=== PATIENT | female | born 1960 | race Caucasian/White ===

== ENCOUNTER 2021-01-07 10:39 | Inpatient (IN) | payer MEDICAID ==
[~2021-01-07] VITALS: Ht 152.4 cm; Wt 98.1 kg
[2021-01-07 11:27] LABS: HEMATOCRIT. 48.8 % (36.0-48.0); HEMOGLOBIN. 15.6 g/dL (12.0-16.0); MEAN CORPUSCULAR HEMOGLOBIN 25.7 pg (28.0-32.0); MEAN PLATELET VOLUME 9.4 fl (7.4-10.4); PLATELET 190 x1000/uL (130-400); RED CELL DISTRIBUTION WIDTH 22.8 % (11.6-14.6)
[2021-01-07 11:33] LABS: CHLORIDE 107 mEq/L (98-107)
[2021-01-07 11:38] LABS: INR 1.1; PROTHROMBIN TIME 11.6 sec (9.6-11.0)
[2021-01-07 11:59] LABS: PLATELET ESTIMATE NORMAL
[2021-01-07 12:06] LABS: BG BASE EXCESS 0.3 mmol/L (-2.0-2.0); BG CARBOXYHEMOGLOBIN 2.1 % (0.5-1.5); BG DEOXYHEMOGLOBIN 1.2 % (0.0-5.0); BG FRACTION INSPIRED OXYGEN 60; BG HCO3 ACT 24.5 mmol/L (22.0-26.0); BG METHEMOGLOBIN 0.4 % (0.0-1.5); BG OXYGEN SATURATION 98.8 % (92.0-98.5); BG OXYHEMOGLOBIN 96.3 % (94.0-97.0); BG PCO2 38.6 mmHg (35.0-45.0); BG PH 7.421 (7.350-7.450); BG PO2 131.8 mmHg (75.0-100.0); BG SAMPLE SITE RIGHT RADIAL; BG TOTAL HEMOGLOBIN 15.3 g/dL (12.0-18.0); BG VENT MODE MASK - BIPAP
[2021-01-07] MEDS ORDERED: VANCOMYCIN 1 G PREMIX 200 ML IV ONE (12:30)
[2021-01-07] MEDS ORDERED: DEXAMETHASONE 10 MG/ML VIAL IV ONE (12:30)
[2021-01-07] MEDS ORDERED: PIPERACILLIN/TAZ 3.375G PREMIX 50 ML IV ONE (12:30)
[2021-01-07] MEDS ORDERED: ALBUTEROL 6.7GM HFA INHALER ORI PRN (14:45)
[2021-01-07] MEDS ORDERED: AZITHROMYCIN 500 MG in DEXT 5% WATER 250 ML IV SCH (15:00)
[2021-01-07] MEDS ORDERED: CLONIDINE 0.1MG TABLET PO PRN (15:00)
[2021-01-07] MEDS ORDERED: CEFTRIAXONE 1 G PREMIX 50 ML IV NR (15:00)
[2021-01-07] MEDS ORDERED: ENOXAPARIN 40MG/0.4ML SYR SUBCUT SCH (15:00)
[2021-01-07] MEDS ORDERED: GUAIFENESIN 200MG/10ML SUGAR FREE UDC PO PRN (15:00)
[2021-01-07] MEDS ORDERED: DOCUSATE SODIUM 100MG CAPSULE PO PRN (15:00)
[2021-01-07] MEDS ORDERED: MAGNESIUM/ALUMINUM HYDROXIDE/SIMETHICONE 30ML UDC PO PRN (15:00)
[2021-01-07] MEDS ORDERED: ONDANSETRON HCL 4MG/2ML INJ IV PRN (15:00)
[2021-01-07] MEDS ORDERED: NALOXONE HCL 0.4MG/ML VIAL IV PRN (15:00)
[2021-01-07] MEDS: ENOXAPARIN 30MG/0.3ML SYR SUBCUT SCH (18:00)
[2021-01-07 21:13] LABS: CLARITY URINE CLEAR (CLEAR); COLOR URINE YELLOW (YELLOW); KETONES URINE TRACE (NEGATIVE); LEUKOCYTE ESTERASE URINE TRACE (NEGATIVE); NITRITE URINE POSITIVE (NEGATIVE); OCCULT BLOOD URINE NEGATIVE (NEGATIVE); PH URINE 5.5 (4.5-8.0); PROTEIN URINE 1+ (NEGATIVE); SPECIFIC GRAVITY URINE 1.014 (1.005-1.030)
[2021-01-07] MEDS ORDERED: ALBUTEROL (0.083%) 2.5MG/3ML NEB HHN PRN (22:45)
[2021-01-08] VITALS (13 sets, daily range): BP systolic 115–166; BP diastolic 60–97
[2021-01-08] MEDS ORDERED: DEXTROSE 50% WATER 50ML SYRINGE IV PRN (03:30)
[2021-01-08 05:41] LABS: BASOPHILS % 0.3 % (0.0-2.0); EOSINOPHILS % 0.1 % (0.0-5.0); HEMATOCRIT. 44.2 % (36.0-48.0); HEMOGLOBIN. 14.1 g/dL (12.0-16.0); LYMPHOCYTES % 17.6 % (20.0-50.0); MEAN CORPUSCULAR HEMOGLOBIN 25.7 pg (28.0-32.0); MEAN CORPUSCULAR VOLUME 80.8 fL (81.0-99.0); MEAN PLATELET VOLUME 9.7 fl (7.4-10.4); MONOCYTES % 5.4 % (2.0-8.0); NEUTROPHILS % 76.6 % (40.0-76.0); PLATELET 130 x1000/uL (130-400); RED BLOOD CELL COUNT 5.47 mill/uL (4.2-5.4); RED CELL DISTRIBUTION WIDTH 22.9 % (11.6-14.6)
[2021-01-08 05:43] LABS: CHLORIDE 106 mEq/L (98-107)
[2021-01-08] MEDS: BLOOD SUGAR DIAGNOSTIC STRIP TEST SCH ×4 (06:34→21:12)
[2021-01-08] MEDS: ENOXAPARIN 30MG/0.3ML SYR SUBCUT SCH ×2 (06:34→18:00)
[2021-01-08] MEDS: INSULIN LISPRO 100 UNITS/ML SUBCUT SCH ×5 (08:58→21:18)
[2021-01-08] MEDS: AMLODIPINE 10MG TABLET PO SCH (08:58)
[2021-01-08] MEDS ORDERED: CEFTRIAXONE 1,000 MG in DEXTROSE 5% WATER 50 ML IV SCH (12:00)
[2021-01-08] MEDS: AZITHROMYCIN 500 MG in DEXT 5% WATER 250 ML IV SCH (13:32)
[2021-01-08] MEDS ORDERED: FUROSEMIDE 100MG/10ML VIAL IVP SCH (14:00)
[2021-01-08] MEDS: CEFTRIAXONE 1,000 MG in DEXTROSE 5% WATER 50 ML IV SCH (15:20)
[2021-01-08] MEDS: FUROSEMIDE 40MG/4ML VIAL IVP SCH (21:11)
[2021-01-08] MEDS: LORAZEPAM 2MG/ML CPJ IV PRN (21:11)
[2021-01-09] VITALS (12 sets, daily range): BP systolic 112–128; BP diastolic 50–85
[2021-01-09] MEDS: BLOOD SUGAR DIAGNOSTIC STRIP TEST SCH ×4 (06:57→21:21)
[2021-01-09] MEDS: ENOXAPARIN 30MG/0.3ML SYR SUBCUT SCH ×2 (06:58→17:56)
[2021-01-09] MEDS: INSULIN LISPRO 100 UNITS/ML SUBCUT SCH ×4 (08:19→21:13)
[2021-01-09] MEDS: AMLODIPINE 10MG TABLET PO SCH (08:19)
[2021-01-09] MEDS: FUROSEMIDE 40MG/4ML VIAL IVP SCH ×2 (08:19→17:56)
[2021-01-09] MEDS: IPRATROPIUM/ALBUTEROL 0.5-3(2.5)MG/3ML NEB HHN SCH ×2 (11:25→16:00)
[2021-01-09] MEDS: AZITHROMYCIN 500 MG in DEXT 5% WATER 250 ML IV SCH (13:30)
[2021-01-09] MEDS: BENZONATATE 100MG CAPSULE PO PRN (13:33)
[2021-01-09 13:40] LABS: BG BASE EXCESS 5.3 mmol/L (-2.0-2.0); BG CARBOXYHEMOGLOBIN 1.6 % (0.5-1.5); BG METHEMOGLOBIN 0.4 % (0.0-1.5); BG OXYGEN SATURATION 88.8 % (92.0-98.5); BG PCO2 48.9 mmHg (35.0-45.0); BG PO2 53.2 mmHg (75.0-100.0); BG SAMPLE SITE RIGHT RADIAL; BG TOTAL HEMOGLOBIN 15.2 g/dL (12.0-18.0); BG VENT MODE NASAL CANNULA
[2021-01-09] MEDS: CEFTRIAXONE 1,000 MG in DEXTROSE 5% WATER 50 ML IV SCH (16:01)
[2021-01-09] MEDS: ACETAMINOPHEN 325MG TABLET PO PRN (21:12)
[2021-01-10] VITALS (12 sets, daily range): BP systolic 120–152; BP diastolic 74–97
[2021-01-10] MEDS: IPRATROPIUM/ALBUTEROL 0.5-3(2.5)MG/3ML NEB HHN SCH ×3 (02:10→14:13)
[2021-01-10] MEDS: BLOOD SUGAR DIAGNOSTIC STRIP TEST SCH ×4 (06:04→20:55)
[2021-01-10] MEDS: ENOXAPARIN 30MG/0.3ML SYR SUBCUT SCH ×2 (06:04→17:57)
[2021-01-10] MEDS: HYDROCODONE/ACETAMINOPHEN 5/325MG TABLET PO PRN ×2 (06:05→20:52)
[2021-01-10] MEDS: INSULIN LISPRO 100 UNITS/ML SUBCUT SCH ×4 (06:08→20:54)
[2021-01-10] MEDS: AMLODIPINE 10MG TABLET PO SCH (09:31)
[2021-01-10] MEDS: FUROSEMIDE 40MG/4ML VIAL IVP SCH ×2 (09:31→17:57)
[2021-01-10] MEDS: SPIRONOLACTONE 25MG TABLET PO SCH (13:28)
[2021-01-10] MEDS: AZITHROMYCIN 500 MG in DEXT 5% WATER 250 ML IV SCH (13:28)
[2021-01-10] MEDS: CEFTRIAXONE 1,000 MG in DEXTROSE 5% WATER 50 ML IV SCH (15:38)
[2021-01-10] MEDS: INSULIN GLARGINE UD 100 UNITS/ML SYR SUBCUT SCH ×2 (15:38→20:53)
[2021-01-10] MEDS: METHYLPREDNISOLONE SOD SUCC 40 MG/ML VIAL IV SCH ×2 (15:38→20:58)
[2021-01-10] MEDS: BENZONATATE 100MG CAPSULE PO PRN (17:58)
[2021-01-10] MEDS: LORAZEPAM 2MG/ML CPJ IV PRN (20:52)
[2021-01-10] MEDS: IPRATROPIUM/ALBUTEROL 0.5-3(2.5)MG/3ML NEB HHN PRN (21:24)
[2021-01-10] MEDS ORDERED: INSULIN GLARGINE UD 100 UNITS/ML SYR SUBCUT SCH (22:00)
[2021-01-11] VITALS (10 sets, daily range): BP systolic 129–143; BP diastolic 71–83
[2021-01-11] MEDS: METHYLPREDNISOLONE SOD SUCC 40 MG/ML VIAL IV SCH (05:53)
[2021-01-11] MEDS: ENOXAPARIN 30MG/0.3ML SYR SUBCUT SCH ×2 (05:53→18:38)
[2021-01-11] MEDS: BLOOD SUGAR DIAGNOSTIC STRIP TEST SCH ×4 (05:55→20:23)
[2021-01-11] MEDS: INSULIN LISPRO 100 UNITS/ML SUBCUT SCH ×4 (05:58→20:22)
[2021-01-11] MEDS: IPRATROPIUM/ALBUTEROL 0.5-3(2.5)MG/3ML NEB HHN SCH ×4 (08:15→21:50)
[2021-01-11] MEDS: SPIRONOLACTONE 25MG TABLET PO SCH (09:46)
[2021-01-11] MEDS: AMLODIPINE 10MG TABLET PO SCH (09:47)
[2021-01-11] MEDS: FUROSEMIDE 40MG/4ML VIAL IVP SCH (09:47)
[2021-01-11] MEDS ORDERED: METHYLPREDNISOLONE SOD SUCC 125 MG/2 ML VIAL IV SCH (12:00)
[2021-01-11] MEDS ORDERED: AZITHROMYCIN 500 MG TABLET PO SCH (13:00)
[2021-01-11] MEDS: CEFTRIAXONE 1,000 MG in DEXTROSE 5% WATER 50 ML IV SCH (13:57)
[2021-01-11] MEDS: METHYLPREDNISOLONE 125MG 250 MG in DEXT 5% WATER 100 ML IV SCH ×2 (14:02→20:23)
[2021-01-11 16:47] LABS: CHLORIDE 98 mEq/L (98-107)
[2021-01-11] MEDS: LORAZEPAM 2MG/ML CPJ IV PRN (20:24)
[2021-01-11] MEDS: HYDROCODONE/ACETAMINOPHEN 5/325MG TABLET PO PRN (20:25)
[2021-01-11] MEDS ORDERED: INSULIN GLARGINE UD 100 UNITS/ML SYR SUBCUT SCH (22:00)
[2021-01-12] VITALS (12 sets, daily range): BP systolic 117–145; BP diastolic 75–85
[2021-01-12] MEDS: METHYLPREDNISOLONE 125MG 250 MG in DEXT 5% WATER 100 ML IV SCH ×4 (03:14→21:25)
[2021-01-12] MEDS: BLOOD SUGAR DIAGNOSTIC STRIP TEST SCH ×4 (06:09→20:25)
[2021-01-12] MEDS: ENOXAPARIN 30MG/0.3ML SYR SUBCUT SCH ×2 (06:09→18:38)
[2021-01-12] MEDS: INSULIN LISPRO 100 UNITS/ML SUBCUT SCH ×4 (06:14→21:26)
[2021-01-12] MEDS ORDERED: FUROSEMIDE 40MG/4ML VIAL IVP SCH (09:00)
[2021-01-12] MEDS: AMLODIPINE 10MG TABLET PO SCH (09:07)
[2021-01-12] MEDS: SPIRONOLACTONE 25MG TABLET PO SCH (09:08)
[2021-01-12] MEDS: IPRATROPIUM/ALBUTEROL 0.5-3(2.5)MG/3ML NEB HHN SCH ×3 (11:08→21:44)
[2021-01-12] MEDS ORDERED: INSULIN GLARGINE UD 100 UNITS/ML SYR SUBCUT NR (15:00)
[2021-01-12] MEDS: CEFTRIAXONE 1,000 MG in DEXTROSE 5% WATER 50 ML IV SCH (15:24)
[2021-01-12] MEDS ORDERED: INSULIN LISPRO 100 UNITS/ML SUBCUT NR (17:45)
[2021-01-12] MEDS: INSULIN GLARGINE UD 100 UNITS/ML SYR SUBCUT SCH (21:26)
[2021-01-12] MEDS: BENZONATATE 100MG CAPSULE PO PRN (22:35)
[2021-01-12] MEDS: LORAZEPAM 2MG/ML CPJ IV PRN (22:36)
[2021-01-13] VITALS (12 sets, daily range): BP systolic 117–149; BP diastolic 69–85
[2021-01-13] MEDS: IPRATROPIUM/ALBUTEROL 0.5-3(2.5)MG/3ML NEB HHN SCH ×5 (00:54→21:24)
[2021-01-13] MEDS: METHYLPREDNISOLONE 125MG 250 MG in DEXT 5% WATER 100 ML IV SCH ×2 (03:33→09:36)
[2021-01-13] MEDS: BLOOD SUGAR DIAGNOSTIC STRIP TEST SCH ×4 (06:38→20:03)
[2021-01-13] MEDS: INSULIN LISPRO 100 UNITS/ML SUBCUT SCH ×7 (07:01→22:14)
[2021-01-13] MEDS: ENOXAPARIN 30MG/0.3ML SYR SUBCUT SCH ×2 (07:01→18:24)
[2021-01-13] MEDS ORDERED: FUROSEMIDE 40MG TABLET PO SCH (09:00)
[2021-01-13] MEDS: AMLODIPINE 10MG TABLET PO SCH (09:35)
[2021-01-13] MEDS: SPIRONOLACTONE 25MG TABLET PO SCH (09:36)
[2021-01-13] MEDS: FUROSEMIDE 40MG/4ML VIAL IVP SCH (10:15)
[2021-01-13 11:16] LABS: CHLORIDE 100 mEq/L (98-107)
[2021-01-13] MEDS: INSULIN GLARGINE UD 100 UNITS/ML SYR SUBCUT SCH ×2 (12:00→22:14)
[2021-01-13] MEDS ORDERED: POTASSIUM CHLORIDE 20MEQ TABLET SR PO NR (14:30)
[2021-01-13] MEDS: METHYLPREDNISOLONE SOD SUCC 125 MG/2 ML VIAL IV SCH ×2 (16:28→22:13)
[2021-01-13] MEDS: HYDROCODONE/ACETAMINOPHEN 5/325MG TABLET PO PRN (20:08)
[2021-01-13] MEDS: BENZONATATE 100MG CAPSULE PO PRN (22:14)
[2021-01-14] VITALS (12 sets, daily range): BP systolic 118–141; BP diastolic 72–83
[2021-01-14] MEDS: IPRATROPIUM/ALBUTEROL 0.5-3(2.5)MG/3ML NEB HHN PRN (01:17)
[2021-01-14] MEDS: METHYLPREDNISOLONE SOD SUCC 125 MG/2 ML VIAL IV SCH ×4 (03:24→20:28)
[2021-01-14] MEDS: HYDROCODONE/ACETAMINOPHEN 5/325MG TABLET PO PRN (03:25)
[2021-01-14] MEDS: BLOOD SUGAR DIAGNOSTIC STRIP TEST SCH ×4 (06:31→20:28)
[2021-01-14] MEDS: INSULIN LISPRO 100 UNITS/ML SUBCUT SCH ×7 (06:38→21:11)
[2021-01-14] MEDS: ENOXAPARIN 30MG/0.3ML SYR SUBCUT SCH ×2 (06:38→17:10)
[2021-01-14 07:16] LABS: BASOPHILS % 0.1 % (0.0-2.0); HEMATOCRIT. 41.1 % (36.0-48.0); HEMOGLOBIN. 13.3 g/dL (12.0-16.0); LYMPHOCYTES % 7.5 % (20.0-50.0); MEAN CORPUSCULAR HEMOGLOBIN 25.9 pg (28.0-32.0); MEAN CORPUSCULAR VOLUME 80.1 fL (81.0-99.0); MEAN PLATELET VOLUME 9.1 fl (7.4-10.4); MONOCYTES % 4.2 % (2.0-8.0); NEUTROPHILS % 88.2 % (40.0-76.0); PLATELET 184 x1000/uL (130-400); RED BLOOD CELL COUNT 5.13 mill/uL (4.2-5.4); RED CELL DISTRIBUTION WIDTH 22.2 % (11.6-14.6)
[2021-01-14 07:21] LABS: CHLORIDE 101 mEq/L (98-107)
[2021-01-14] MEDS: AMLODIPINE 10MG TABLET PO SCH (08:28)
[2021-01-14] MEDS: BENZONATATE 100MG CAPSULE PO PRN (08:28)
[2021-01-14] MEDS: SPIRONOLACTONE 25MG TABLET PO SCH (08:28)
[2021-01-14] MEDS: FUROSEMIDE 40MG/4ML VIAL IVP SCH (08:28)
[2021-01-14] MEDS: IPRATROPIUM/ALBUTEROL 0.5-3(2.5)MG/3ML NEB HHN SCH ×4 (10:20→17:35)
[2021-01-14] MEDS: LORAZEPAM 2MG/ML CPJ IV PRN ×2 (10:48→23:18)
[2021-01-14] MEDS: INSULIN GLARGINE UD 100 UNITS/ML SYR SUBCUT SCH ×2 (12:48→21:11)
[2021-01-14] MEDS: ACETAMINOPHEN 325MG TABLET PO PRN (20:27)
[2021-01-15] VITALS (12 sets, daily range): BP systolic 113–134; BP diastolic 67–78
[2021-01-15] MEDS: METHYLPREDNISOLONE SOD SUCC 125 MG/2 ML VIAL IV SCH ×4 (03:58→20:34)
[2021-01-15] MEDS: ENOXAPARIN 30MG/0.3ML SYR SUBCUT SCH ×2 (06:08→18:02)
[2021-01-15] MEDS: BLOOD SUGAR DIAGNOSTIC STRIP TEST SCH ×4 (06:08→20:33)
[2021-01-15] MEDS: INSULIN LISPRO 100 UNITS/ML SUBCUT SCH ×7 (06:22→21:54)
[2021-01-15] MEDS: SPIRONOLACTONE 25MG TABLET PO SCH (09:38)
[2021-01-15] MEDS: FUROSEMIDE 40MG/4ML VIAL IVP SCH (09:38)
[2021-01-15] MEDS: BENZONATATE 100MG CAPSULE PO PRN (09:38)
[2021-01-15] MEDS: AMLODIPINE 10MG TABLET PO SCH (09:38)
[2021-01-15] MEDS: INSULIN GLARGINE UD 100 UNITS/ML SYR SUBCUT SCH ×2 (09:39→21:54)
[2021-01-15] MEDS ORDERED: FUROSEMIDE 100MG/10ML VIAL IVP SCH (12:15)
[2021-01-15 12:57] LABS: BG BASE EXCESS 12.4 mmol/L (-2.0-2.0); BG CARBOXYHEMOGLOBIN 0.8 % (0.5-1.5); BG DEOXYHEMOGLOBIN 5.6 % (0.0-5.0); BG FRACTION INSPIRED OXYGEN 90; BG HCO3 ACT 37.9 mmol/L (22.0-26.0); BG METHEMOGLOBIN 0.3 % (0.0-1.5); BG OXYGEN SATURATION 94.3 % (92.0-98.5); BG OXYHEMOGLOBIN 93.3 % (94.0-97.0); BG PCO2 51.1 mmHg (35.0-45.0); BG PH 7.488 (7.350-7.450); BG SAMPLE SITE RIGHT RADIAL; BG VENT MODE HIGH FLOW
[2021-01-15 15:25] LABS: CHLORIDE 96 mEq/L (98-107)
[2021-01-15] MEDS: LORAZEPAM 2MG/ML CPJ IV PRN (16:21)
[2021-01-15] MEDS: IPRATROPIUM/ALBUTEROL 0.5-3(2.5)MG/3ML NEB HHN SCH ×2 (17:38→20:33)
[2021-01-15] MEDS: ACETAMINOPHEN 325MG TABLET PO PRN (20:35)
[2021-01-16] VITALS (12 sets, daily range): BP systolic 117–155; BP diastolic 66–84
[2021-01-16] MEDS: METHYLPREDNISOLONE SOD SUCC 125 MG/2 ML VIAL IV SCH ×4 (04:07→21:13)
[2021-01-16] MEDS: HYDROCODONE/ACETAMINOPHEN 5/325MG TABLET PO PRN ×2 (04:28→22:20)
[2021-01-16] MEDS: ENOXAPARIN 30MG/0.3ML SYR SUBCUT SCH ×2 (06:44→18:02)
[2021-01-16] MEDS: BLOOD SUGAR DIAGNOSTIC STRIP TEST SCH ×4 (06:44→21:05)
[2021-01-16] MEDS: INSULIN LISPRO 100 UNITS/ML SUBCUT SCH ×7 (08:06→21:14)
[2021-01-16] MEDS: SPIRONOLACTONE 25MG TABLET PO SCH (08:24)
[2021-01-16] MEDS: AMLODIPINE 10MG TABLET PO SCH (08:30)
[2021-01-16] MEDS: FUROSEMIDE 40MG/4ML VIAL IVP SCH (08:30)
[2021-01-16] MEDS: IPRATROPIUM/ALBUTEROL 0.5-3(2.5)MG/3ML NEB HHN SCH ×4 (09:21→20:11)
[2021-01-16] MEDS: INSULIN GLARGINE UD 100 UNITS/ML SYR SUBCUT SCH ×2 (10:09→21:14)
[2021-01-16 12:49] LABS: BG BASE EXCESS 12.6 mmol/L (-2.0-2.0); BG CARBOXYHEMOGLOBIN 1.1 % (0.5-1.5); BG DEOXYHEMOGLOBIN 3.2 % (0.0-5.0); BG FRACTION INSPIRED OXYGEN 100; BG HCO3 ACT 37.7 mmol/L (22.0-26.0); BG METHEMOGLOBIN 0.4 % (0.0-1.5); BG OXYGEN SATURATION 96.8 % (92.0-98.5); BG OXYHEMOGLOBIN 95.3 % (94.0-97.0); BG PCO2 48.8 mmHg (35.0-45.0); BG PH 7.506 (7.350-7.450); BG SAMPLE SITE RIGHT RADIAL; BG VENT MODE HIGH FLOW
[2021-01-17] VITALS (12 sets, daily range): BP systolic 109–135; BP diastolic 62–87
[2021-01-17] MEDS: METHYLPREDNISOLONE SOD SUCC 125 MG/2 ML VIAL IV SCH ×4 (03:28→21:40)
[2021-01-17] MEDS: BLOOD SUGAR DIAGNOSTIC STRIP TEST SCH ×4 (06:02→21:33)
[2021-01-17] MEDS: ENOXAPARIN 30MG/0.3ML SYR SUBCUT SCH ×2 (06:10→17:17)
[2021-01-17] MEDS: INSULIN LISPRO 100 UNITS/ML SUBCUT SCH ×7 (06:28→21:40)
[2021-01-17] MEDS: AMLODIPINE 10MG TABLET PO SCH (09:14)
[2021-01-17] MEDS: SPIRONOLACTONE 25MG TABLET PO SCH (09:14)
[2021-01-17] MEDS: FUROSEMIDE 40MG/4ML VIAL IVP SCH (09:14)
[2021-01-17] MEDS: INSULIN GLARGINE UD 100 UNITS/ML SYR SUBCUT SCH ×2 (09:15→21:40)
[2021-01-17] MEDS: IPRATROPIUM/ALBUTEROL 0.5-3(2.5)MG/3ML NEB HHN PRN (10:20)
[2021-01-17] MEDS: IPRATROPIUM/ALBUTEROL 0.5-3(2.5)MG/3ML NEB HHN SCH ×4 (14:12→21:50)
[2021-01-17 14:58] LABS: CHLORIDE 94 mEq/L (98-107)
[2021-01-17] MEDS ORDERED: POTASSIUM CHLORIDE 20MEQ TABLET SR PO NR (16:30)
[2021-01-17] MEDS ORDERED: BISACODYL 5MG TABLET PO PRN (16:30)
[2021-01-17] MEDS: OMEPRAZOLE 20MG CAPSULE EXTENDED RELEASE PO SCH (17:15)
[2021-01-18] VITALS (12 sets, daily range): BP systolic 105–156; BP diastolic 59–89
[2021-01-18] MEDS: METHYLPREDNISOLONE SOD SUCC 125 MG/2 ML VIAL IV SCH ×4 (03:27→21:31)
[2021-01-18] MEDS: ACETAMINOPHEN 325MG TABLET PO PRN ×2 (03:35→10:02)
[2021-01-18] MEDS: BLOOD SUGAR DIAGNOSTIC STRIP TEST SCH ×4 (06:12→21:24)
[2021-01-18] MEDS: OMEPRAZOLE 20MG CAPSULE EXTENDED RELEASE PO SCH (06:22)
[2021-01-18] MEDS: ENOXAPARIN 30MG/0.3ML SYR SUBCUT SCH ×2 (06:22→18:09)
[2021-01-18] MEDS: INSULIN LISPRO 100 UNITS/ML SUBCUT SCH ×7 (06:46→21:31)
[2021-01-18] MEDS: SPIRONOLACTONE 25MG TABLET PO SCH (08:11)
[2021-01-18] MEDS: AMLODIPINE 10MG TABLET PO SCH (08:11)
[2021-01-18] MEDS: FUROSEMIDE 40MG/4ML VIAL IVP SCH (08:11)
[2021-01-18] MEDS: IPRATROPIUM/ALBUTEROL 0.5-3(2.5)MG/3ML NEB HHN SCH ×4 (09:34→23:59)
[2021-01-18] MEDS: INSULIN GLARGINE UD 100 UNITS/ML SYR SUBCUT SCH ×2 (10:01→21:31)
[2021-01-18] MEDS ORDERED: MORPHINE SULFATE 2 MG/ML CPJ (NOT FOR IM USE) IV SCH (13:00)
[2021-01-18 14:11] LABS: BG BASE EXCESS 9.4 mmol/L (-2.0-2.0); BG CARBOXYHEMOGLOBIN 1.2 % (0.5-1.5); BG DEOXYHEMOGLOBIN 5.3 % (0.0-5.0); BG FRACTION INSPIRED OXYGEN 100; BG HCO3 ACT 33.5 mmol/L (22.0-26.0); BG METHEMOGLOBIN 0.2 % (0.0-1.5); BG OXYGEN SATURATION 94.6 % (92.0-98.5); BG OXYHEMOGLOBIN 93.3 % (94.0-97.0); BG PCO2 42.9 mmHg (35.0-45.0); BG PO2 68.5 mmHg (75.0-100.0); BG SAMPLE SITE LEFT RADIAL; BG TOTAL RESPIRATORY RATE 26 b/min; BG VENT MODE MASK - BIPAP
[2021-01-18 16:15] LABS: CHLORIDE 93 mEq/L (98-107)
[2021-01-18] MEDS: ALPRAZOLAM 0.25 MG TABLET PO PRN (21:31)
[2021-01-19] VITALS (11 sets, daily range): BP systolic 94–150; BP diastolic 27–97
[2021-01-19] MEDS: METHYLPREDNISOLONE SOD SUCC 125 MG/2 ML VIAL IV SCH ×4 (02:52→20:48)
[2021-01-19] MEDS: HYDROCODONE/APAP 7.5/325MG 1 TAB TABLET PO PRN ×2 (02:53→11:04)
[2021-01-19] MEDS: BLOOD SUGAR DIAGNOSTIC STRIP TEST SCH ×4 (05:51→20:48)
[2021-01-19] MEDS: OMEPRAZOLE 20MG CAPSULE EXTENDED RELEASE PO SCH (05:54)
[2021-01-19] MEDS: ENOXAPARIN 30MG/0.3ML SYR SUBCUT SCH ×2 (05:54→17:26)
[2021-01-19] MEDS: INSULIN LISPRO 100 UNITS/ML SUBCUT SCH ×7 (06:07→21:23)
[2021-01-19 07:11] LABS: HEMATOCRIT. 44.9 % (36.0-48.0); HEMOGLOBIN. 14.5 g/dL (12.0-16.0); MEAN CORPUSCULAR HEMOGLOBIN 25.7 pg (28.0-32.0); MEAN CORPUSCULAR VOLUME 79.9 fL (81.0-99.0); MEAN PLATELET VOLUME 10.2 fl (7.4-10.4); PLATELET 220 x1000/uL (130-400); RED BLOOD CELL COUNT 5.62 mill/uL (4.2-5.4); RED CELL DISTRIBUTION WIDTH 21.5 % (11.6-14.6)
[2021-01-19 07:29] LABS: CHLORIDE 94 mEq/L (98-107)
[2021-01-19] MEDS: SPIRONOLACTONE 25MG TABLET PO SCH (09:13)
[2021-01-19] MEDS: FUROSEMIDE 40MG/4ML VIAL IVP SCH (09:13)
[2021-01-19] MEDS: AMLODIPINE 10MG TABLET PO SCH (09:14)
[2021-01-19] MEDS: ALPRAZOLAM 0.25 MG TABLET PO PRN (09:16)
[2021-01-19] MEDS: IPRATROPIUM/ALBUTEROL 0.5-3(2.5)MG/3ML NEB HHN SCH ×4 (09:59→21:46)
[2021-01-19] MEDS: INSULIN GLARGINE UD 100 UNITS/ML SYR SUBCUT SCH ×2 (10:39→21:24)
[2021-01-19] MEDS: HYDROMORPHONE HCL/PF 2MG/ML CPJ IV PRN ×2 (13:13→19:28)
[2021-01-19 20:21] LABS: PLATELET ESTIMATE NORMAL
[2021-01-20] VITALS (12 sets, daily range): BP systolic 90–155; BP diastolic 30–82
[2021-01-20] MEDS: METHYLPREDNISOLONE SOD SUCC 125 MG/2 ML VIAL IV SCH ×4 (03:50→21:43)
[2021-01-20] MEDS: BLOOD SUGAR DIAGNOSTIC STRIP TEST SCH ×4 (06:04→21:55)
[2021-01-20] MEDS: OMEPRAZOLE 20MG CAPSULE EXTENDED RELEASE PO SCH (06:04)
[2021-01-20] MEDS: ENOXAPARIN 30MG/0.3ML SYR SUBCUT SCH ×2 (06:04→17:37)
[2021-01-20] MEDS: INSULIN LISPRO 100 UNITS/ML SUBCUT SCH ×7 (06:05→22:54)
[2021-01-20] MEDS: HYDROMORPHONE HCL/PF 2MG/ML CPJ IV PRN ×4 (07:44→21:19)
[2021-01-20] MEDS: IPRATROPIUM/ALBUTEROL 0.5-3(2.5)MG/3ML NEB HHN SCH ×4 (08:07→20:59)
[2021-01-20] MEDS: FUROSEMIDE 40MG/4ML VIAL IVP SCH (08:55)
[2021-01-20] MEDS: AMLODIPINE 10MG TABLET PO SCH (08:56)
[2021-01-20] MEDS: SPIRONOLACTONE 25MG TABLET PO SCH (08:56)
[2021-01-20] MEDS: INSULIN GLARGINE UD 100 UNITS/ML SYR SUBCUT SCH ×2 (10:02→21:47)
[2021-01-21] VITALS (12 sets, daily range): BP systolic 77–105; BP diastolic 39–72
[2021-01-21] MEDS: IPRATROPIUM/ALBUTEROL 0.5-3(2.5)MG/3ML NEB HHN SCH ×2 (00:23→04:32)
[2021-01-21] MEDS: HYDROMORPHONE HCL/PF 2MG/ML CPJ IV PRN ×2 (02:14→05:11)
[2021-01-21] MEDS: METHYLPREDNISOLONE SOD SUCC 125 MG/2 ML VIAL IV SCH ×2 (03:53→11:32)
[2021-01-21] MEDS: OMEPRAZOLE 20MG CAPSULE EXTENDED RELEASE PO SCH (06:23)
[2021-01-21] MEDS: BLOOD SUGAR DIAGNOSTIC STRIP TEST SCH ×2 (06:23→11:34)
[2021-01-21] MEDS: INSULIN LISPRO 100 UNITS/ML SUBCUT SCH ×3 (06:50→11:34)
[2021-01-21] MEDS ORDERED: MORPHINE SULFATE 100 MG in DEXT 5% WATER 90 ML IV PRN ×2 (07:00→12:03)
[2021-01-21] MEDS: ENOXAPARIN 30MG/0.3ML SYR SUBCUT SCH (07:06)
[2021-01-21] MEDS: AMLODIPINE 10MG TABLET PO SCH (09:00)
[2021-01-21] MEDS: SPIRONOLACTONE 25MG TABLET PO SCH (09:00)
[2021-01-21] MEDS: FUROSEMIDE 40MG/4ML VIAL IVP SCH (11:32)
[2021-01-21] MEDS: INSULIN GLARGINE UD 100 UNITS/ML SYR SUBCUT SCH (11:33)
[2021-01-21] MEDS ORDERED: LORAZEPAM 2MG/ML CPJ IV PRN (12:30)
[2021-01-21] MEDS ORDERED: MORPHINE SULFATE 250 MG in DEXT 5% WATER 240 ML IV PRN (14:00)
[2021-01-21] MEDS: MORPHINE SULFATE 250 MG in DEXT 5% WATER 225 ML IV PRN (17:14)
[2021-01-21] MEDS ORDERED: ENOXAPARIN 40MG/0.4ML SYR SUBCUT SCH (21:00)
[2021-01-22] VITALS: BP 63/35
[2021-01-22] MEDS: MORPHINE SULFATE 250 MG in DEXT 5% WATER 225 ML IV PRN ×2 (00:15)
[2021-01-22 02:00] VITALS: BP 62/39
[2021-01-22 04:00] VITALS: BP 53/29
== END 2021-01-22 05:32 | DRG 720 ==
LOC: ER 10:59 → EDBD 10:59 → EDBEDREQ 11:24 → MICUSO 13:02 → EDBEDREQ 13:08 → 3WST 22:41
PROVIDERS: ADMIT Hospitalist; ATTEND Hospitalist
PROC: 5A09457 Assistance with Respiratory Ventilation, 24-96 Consecutive Hours, Continuous Positive Airway Pressure (ICD-10-PCS; principal; 2021-01-07)
PROC: 5A09457 Assistance with Respiratory Ventilation, 24-96 Consecutive Hours, Continuous Positive Airway Pressure (ICD-10-PCS; 2021-01-10)
PROC: 5A09457 Assistance with Respiratory Ventilation, 24-96 Consecutive Hours, Continuous Positive Airway Pressure (ICD-10-PCS; 2021-01-18)
PROC: 5A09357 Assistance with Respiratory Ventilation, Less than 24 Consecutive Hours, Continuous Positive Airway Pressure (ICD-10-PCS; 2021-01-20)
PROC: 5A09357 Assistance with Respiratory Ventilation, Less than 24 Consecutive Hours, Continuous Positive Airway Pressure (ICD-10-PCS; 2021-01-21)
DX: A41.9 Sepsis, unspecified organism (principal); J96.21 Acute and chronic respiratory failure with hypoxia; I50.33 Acute on chronic diastolic (congestive) heart failure; I11.0 Hypertensive heart disease with heart failure; J84.10 Pulmonary fibrosis, unspecified; J18.9 Pneumonia, unspecified organism; Z99.81 Dependence on supplemental oxygen; Z66 Do not resuscitate; T38.0X5A Adverse effect of glucocorticoids and synthetic analogues, initial encounter; E11.65 Type 2 diabetes mellitus with hyperglycemia; Y92.238 Other place in hospital as the place of occurrence of the external cause; E66.9 Obesity, unspecified; R74.01 Elevation of levels of liver transaminase levels; E87.6 Hypokalemia; Z20.822 Contact with and (suspected) exposure to COVID-19; Z86.16 Personal history of COVID-19; Z87.01 Personal history of pneumonia (recurrent); Z68.41 Body mass index [BMI] 40.0-44.9, adult
CPT/HCPCS: 36415; 36600; 71045; 80048; 80053; 81003; 82375; 82805; 82962; 83036; 83605; 83735; 83880; 84145; 84484; 85025; 87804; 93005; 93306; 93970; 94640; 94660; 99291; C9803; J0456; J0696; J1100; J1170; J1650; J1815; J1940; J2060; J2270; J2274; J2405; J2543; J2920; J2930; J3370; J7060; U0003; U0005; A4315